=== PATIENT | male | born 1975 | race Two or more races ===

== ENCOUNTER 2019-03-17 00:20 | Emergency (ER) | payer SELFPAY ==
[~2019-03-17] VITALS: Ht 170.2 cm; Wt 114.3 kg
--- NOTE | 2019-03-17 00:23 | NUR ---
BIBSELF. "FEELING A RASH ON MY LEG, HURTS" -SOB AOX4. AMBULATORY. -ACUTE DISTRESS NOTED.
[2019-03-17] MEDS ORDERED: SULFAMETH/TRIMETH 800/160 MG 1 UDTAB TABLET PO ONE ×2 (00:59→01:00)
[2019-03-17] MEDS ORDERED: CEFTRIAXONE 1 G VIAL ONE (00:59)
[2019-03-17] MEDS ORDERED: CEFTRIAXONE 1 G VIAL IM ONE (01:00)
[2019-03-17] MEDS ORDERED: LIDOCAINE 2% 20 ML MDV ONE (01:01)
[2019-03-17 02:03] VITALS: BP 137/88
== END 2019-03-17 02:03 | disposition home or self-care (01) ==
LOC: ER 00:24
DX: L03.116 Cellulitis of left lower limb (principal)
CPT/HCPCS: 96372; 99283; J0696; J3490

== ENCOUNTER 2019-03-19 02:07 | Emergency (ER) | payer SELFPAY ==
[~2019-03-19] VITALS: Ht 167.6 cm; Wt 114.3 kg
[2019-03-19 02:20] VITALS: BP 144/81
== END 2019-03-19 02:53 | disposition home or self-care (01) ==
LOC: ER 02:08
DX: L03.116 Cellulitis of left lower limb (principal)
CPT/HCPCS: Z7502